=== PATIENT | male | born 1950 | race Caucasian/White ===

== ENCOUNTER 2017-04-02 16:20 | Emergency (ER) | payer OTHER ==
[~2017-04-02] VITALS: Ht 180.3 cm; Wt 99.8 kg
--- NOTE | ~2017-04-02 | EKG ---
[place] [address] [place] [address] ELECTROCARDIOGRAM REPORT Name: KEILA MEYER CRISTINO Room #: [facility] [id number] Admission: 04/02/17 Attend Phys: Discharge: 04/02/17 Date of : 54 Report #: [id number] THIS REPORT FOR: //name// 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 : 1950 Requested By: Ze He Order Number: [id number] MD: Maxx Kiran Measurements Intervals [place] Rate: 72 P: -16 WA: 187 QRS: -42 QRSD: 96 T: 22 QT: 394 QTc: 432 Interpretive Statements Sinus rhythm Atrial premature complexes in couplets Left anterior fascicular block Abnormal R-wave progression, early transition No previous ECG available for comparison Electronically Signed On 04-04-2017 9:12:41 CDT by Maxx Kiran [email or web address] <ELECTRONICALLY SIGNED> By: Maxx Kiran MD, [facility] 04/04/17 0912 1628 162 Maxx Kiran MD, [facility] /EPI
[2017-04-02] MEDS ORDERED: NEXIUM40 MG PO (16:32)
[2017-04-02] MEDS ORDERED: VITAMIN B-12500 MCG PO (16:32)
[2017-04-02] MEDS ORDERED: VITAMIN C100 MG PO (16:33)
[2017-04-02 16:45] LABS: ABSOLUTE NEUTROPHILS 3.9 thou/uL (1.4-8.2); BASOPHILS 0.5 % (0.0-2.0); EOSINOPHILS 4.2 % (0.0-3.0); HEMATOCRIT 41.8 % (42.0-52.0); HEMOGLOBIN 14.7 gm/dL (14.0-18.0); MANUAL DIFF NO; MCH 34.8 pg (26.0-34.0); MCV 99.4 fL (80.0-100.0); MONOCYTES 8.5 % (1.0-8.0); PLATELET COUNT 154 thou/uL (150-400); POLYS 66.8 % (36.0-66.0); RBC 4.21 mil/uL (4.50-6.00); RDW 12.9 % (10.5-14.5); WBC 5.8 thou/uL (4.0-11.0)
[2017-04-02 16:53] LABS: ANION GAP 8 mmol/L (7-16); BUN 18 mg/dL (7-18); CALCIUM 9.2 mg/dL (8.5-10.1); CHLORIDE 106 mmol/L (98-107); CO2 28 mmol/L (21-32); CREATININE 1.3 mg/dL (0.7-1.3); GLUCOSE 97 mg/dL (74-106); POTASSIUM 3.9 mmol/L (3.5-5.1); SODIUM 142 mmol/L (136-145)
[2017-04-02 17:00] LABS: TROPONIN-I < 0.04 ng/mL (<0.04-0.07)
[2017-04-02] MEDS ORDERED: PEPCID20 MG PO (18:12)
[2017-04-02 19:42] VITALS: BP 152/86
== END 2017-04-02 19:43 | disposition still patient (30) ==
LOC: ER 16:20
PROVIDERS: Emergency Medicine
DX: R07.89 Other chest pain (principal); K21.9 Gastro-esophageal reflux disease without esophagitis; F10.99 Alcohol use, unspecified with unspecified alcohol-induced disorder; Z98.890 Other specified postprocedural states; Z88.0 Allergy status to penicillin; Z87.891 Personal history of nicotine dependence

== ENCOUNTER 2021-04-13 13:23 | Emergency (ER) | payer OTHER ==
[~2021-04-13] VITALS: Ht 180.3 cm; Wt 74.8 kg
[~2021-04-13 13:23] MED LIST: NEXIUM40 MG PO; PEPCID20 MG PO; VITAMIN B-12500 MCG PO; VITAMIN C100 MG PO
[2021-04-13] MEDS ORDERED: KAPSPARGO SPRIN25 MG PO (14:20)
[2021-04-13] MEDS ORDERED: LEVOTHYROXINE75 MC1 PO (14:21)
[2021-04-13] MEDS ORDERED: LEVSIN0.125 MG PO (14:22)
--- NOTE | 2021-04-13 14:53 | EKG ---
[place] [address] [facility] [place] [address] ELECTROCARDIOGRAM REPORT Name: KEILA MEYER CRISTINO Room #: REG [facility] COUNTYRasheeda#: [id number] Admission: 04/13/21 Attend Phys: Discharge: Date of : 54 Report #: [id number] [facility] ED Test Date: 2021-04-13 Test Time: 13:30:34 Pat Name: KEILA MEYER Department: Room: Gender: M Mortgage Professional: : 1950 Requested By: Toi Edwards Order Number: [id number] MD: Kraig Woodard Measurements Intervals [place] Rate: 68 P: -28 GA: 196 QRS: -28 QRSD: 86 T: 35 QT: 387 QTc: 412 Interpretive Statements Sinus rhythm Atrial premature complex Borderline left axis deviation Compared to ECG 04/02/2017 16:28:18 Left anterior fascicular block no longer present Electronically Signed On 04-13-2021 14:53:37 CDT by Kraig Woodard [email or web address] <ELECTRONICALLY SIGNED> By: Kraig Woodard MD, [facility] 04/13/21 1453 1330 133 Kraig Woodard MD, [facility] /EPI
[2021-04-13 15:01] LABS: ABSOLUTE NEUTROPHILS 1.9 thou/uL (1.4-8.2); BASOPHILS 0.5 % (0.0-2.0); EOSINOPHILS 2.9 % (0.0-3.0); HEMATOCRIT 38.5 % (42.0-52.0); HEMOGLOBIN 13.3 gm/dL (14.0-18.0); LYMPHOCYTES 22.2 % (24.0-44.0); MCH 34.3 pg (26.0-34.0); MCHC 34.5 g/dL (28.0-37.0); MCV 99.3 fL (80.0-100.0); MONOCYTES 11.6 % (1.0-8.0); PLATELET COUNT 143 thou/uL (150-400); POLYS 62.8 % (36.0-66.0); RBC 3.88 mil/uL (4.50-6.00); RDW 12.6 % (10.5-14.5); WBC 3.1 thou/uL (4.0-11.0)
[2021-04-13 15:08] LABS: ANION GAP 5 mmol/L (7-16); BUN 15 mg/dL (7-18); CHLORIDE 105 mmol/L (98-107); CO2 31 mmol/L (21-32); CREATININE 1.2 mg/dL (0.7-1.3); GLUCOSE 113 mg/dL (74-106); POTASSIUM 3.8 mmol/L (3.5-5.1); SODIUM 141 mmol/L (136-145)
[2021-04-13 15:18] LABS: ALBUMIN 3.7 g/dL (3.4-5.0); SGOT 14 U/L (15-37); SGPT 20 U/L (16-63); TOTAL BILIRUBIN 1.4 mg/dL (0.2-1.0); TOTAL PROTEIN 7.3 g/dL (6.4-8.2); TROPONIN-I <0.06 ng/mL (<0.06)
[2021-04-13 16:31] LABS: URINE BILIRUBIN NEGATIVE (Negative); URINE BLOOD NEGATIVE (Negative); URINE CLARITY CLEAR; URINE COLOR YELLOW; URINE GLUCOSE-RANDOM* NEGATIVE (Negative); URINE KETONES TRACE (Negative); URINE LEUKOCYTES-REFLEX NEGATIVE (Negative); URINE NITRITE-REFLEX NEGATIVE (Negative); URINE PROTEIN (DIPSTICK) NEGATIVE (Negative); URINE SPECIFIC GRAVITY <= 1.005 (1.005-1.035); URINE UROBILINOGEN 0.2 E.U./dl (0.2-1.0)
[2021-04-13 17:57] VITALS: BP 162/89
--- NOTE | 2021-04-15 13:14 | P ---
[facility] [place] [address] [place] [address] PROCEDURE REPORT Name: KEILA MEYER Room #: DEP [facility]#: [id number] Admission: 04/13/21 Attend Phys: Discharge: 04/13/21 Date of : 54 Report #: [id number] THIS REPORT FOR: cc: Esteban Cárdenas Andrea RNP McElhinney, Christian C. MD ~ cc: Dr Daly DATE OF SERVICE: 04/13/2021 PROCEDURE PERFORMED: Upper endoscopy with food impaction removal and balloon dilation. HISTORY OF PRESENT ILLNESS: The patient is a 70-year-old male with a history of achalasia with recurrent dysphagia. He has been unable to keep liquids down for the last several days. We had discussed apparently possible Botox in the past, but he never did schedule this. Plan is for EGD. A CT scan of the chest was performed as the patient was admitted with chest pain which showed a significantly dilated esophagus consistent with achalasia. DESCRIPTION OF PROCEDURE: The risks and benefits of the procedure were explained to the patient, those risks including but not limited to bleeding, perforation and the risk of sedation. He understood these risks and gave informed consent. The patient was intubated to protect his airway. Next, using a standard Olympus upper endoscope, the scope was placed in the patient's mouth and advanced under direct vision into the upper esophagus, at which point a significantly dilated esophagus full of soft food and particulate matter as well as some liquid was noted. I then spent over an hour removing the food by a combination of aspiration as well as Pompa net. Eventually, I was able to clear the esophagus. The esophagus was significantly dilated consistent with achalasia. There was narrowing at the GE junction; however, the scope did pass through this area without difficulty. There was old food residual noted in the stomach. There was a mild gastritis noted. Pylorus was normal and patent. The duodenal bulb, first and second portion were normal. The scope was then brought back up into the patient's distal esophagus and a balloon catheter was inserted through the scope and the GE junction was dilated to a maximum of 18 mm. This was held in place for 1 minute. There was no evidence of mucosal tear after dilation. The scope was then withdrawn and the procedure terminated. The patient tolerated the procedure well. IMPRESSION: 1. Findings consistent with achalasia and food impaction, status post removal and balloon dilation as described above. 2. Gastritis. 3. Otherwise, normal upper endoscopy. [facility] [address] [place] [address] PROCEDURE REPORT Name: MITCHKEILA CRISTINO Room #: DEP ER Davina#: [id number] Admission: 04/13/21 Attend Phys: Discharge: 04/13/21 Date of : 54 Report #: [id number] RECOMMENDATIONS: 1. Observe the patient post-procedure. 2. Would recommend liquid diet until the patient either has Botox injection in the near future endoscopically or Heller myotomy surgery as he is high risk for this food impaction to occur again. Thank you for allowing me to participate in his care. <ELECTRONICALLY SIGNED> By: Shaq Bone MD 04/15/21 1314 [id number] 0154 Shaq Bone MD /nt
[2021-04-16] MEDS ORDERED: VITAMIN B-121000 MC2 SUBLING (12:48)
[2021-04-16] MEDS ORDERED: COLLAGEN PO (12:48)
[2021-04-16] MEDS ORDERED: VITAMIN B-121000 MC2 IM (12:49)
== END 2021-04-13 18:19 | disposition home or self-care (01) ==
LOC: ER 13:23
PROVIDERS: Emergency Medicine
DX: K22.2 Esophageal obstruction (principal); K22.0 Achalasia of cardia; Z20.822 Contact with and (suspected) exposure to COVID-19; Z90.89 Acquired absence of other organs; Z79.899 Other long term (current) drug therapy; Z88.0 Allergy status to penicillin; Z88.8 Allergy status to other drugs, medicaments and biological substances; Z87.891 Personal history of nicotine dependence
CPT/HCPCS: 62110; 62900; 70005

== ENCOUNTER → 2021-04-17 | Outpatient (CLI) | payer OTHER ==
[~2021-04-17] VITALS: Ht 182.9 cm; Wt 81.6 kg
[~2021-04-17] MED LIST changes: +COLLAGEN PO; +KAPSPARGO SPRIN25 MG PO; +LEVOTHYROXINE75 MC1 PO; +LEVSIN0.125 MG PO; +VITAMIN B-121000 MC2 IM; +VITAMIN B-121000 MC2 SUBLING
--- NOTE | ~2021-04-17 | P ---
[facility] [place] [address] [address] PROCEDURE REPORT Name: KEILA MEYER Room #: REG [facility]LESRasheedaRasheeda#: [id number] Admission: 04/17/21 Attend Phys: Shaq Lopez Discharge: Date of : 54 Report #: [id number] THIS REPORT FOR: cc: Esteban Cárdenas Andrea RNP McElhinney, Christian C. MD ~ cc: Ramon Kraft MD DATE OF SERVICE: 04/17/2021 PROCEDURE NOTE PROCEDURE PERFORMED: Upper endoscopy with biopsies and Botox injection. HISTORY OF PRESENT ILLNESS: The patient is a 70-year-old male with a history of achalasia and dysphagia. He underwent an emergent upper endoscopy by myself on 04/13/2021 for food impaction. The patient was evaluated in the emergency room with chest pain at that time. Upper endoscopy showed a large amount of semi-liquid food in a significantly dilated esophagus. I spent approximately an hour and a half, removing all this from his esophagus and I did perform a balloon dilation eventually. We discussed at that time proceeding either with Botox and/or Heller myotomy. The patient now presents today for Botox injection of the lower esophageal sphincter. DESCRIPTION OF PROCEDURE: The risks and benefits of the procedure were explained to the patient, those risks including but not limited to bleeding, perforation and the risk of sedation. He understood these risks and gave me informed consent. Sedation was given initially with propofol. Next, using a standard Olympus upper endoscope, the scope was placed in the patient's mouth and advanced under direct vision into the proximal esophagus, at which point it was again significantly dilated. There was a same appearance of semi-liquid food material, even though the patient has been on liquids only since his last upper endoscopy. At this point, the scope was withdrawn and the patient was intubated to protect his airway. This was done without difficulty. Next, the scope was reintroduced into the patient's esophagus. I then proceeded with removing the semi-liquid food material, this time only taking approximately 5 minutes and the esophagus was cleared. I advanced the scope into the stomach. There was a moderate gastritis with several ulcerations noted in the gastric fundus and upper body. Biopsies were obtained to rule out H. pylori. The pylorus was normal and patent. The duodenal bulb, first and second portion were all normal. The scope was then brought back up into the patient's distal esophagus and I next proceeded with injecting Botox in a 4-quadrant fashion with equal parts. No evidence of bleeding after Botox injection. At this point, the scope was then withdrawn and the procedure terminated. The patient tolerated the procedure well. [address] [address] PROCEDURE REPORT Name: KEILA MEYER Room #: REG [facility] Ghosh#: [id number] Admission: 04/17/21 Attend Phys: Shaq Lopez Discharge: Date of : 54 Report #: [id number] IMPRESSION: 1. Changes again consistent with achalasia, again semi-liquid food material noted in the esophagus. This was aspirated away as described above. 2. Gastritis with gastric ulcers. Biopsies were obtained. 3. Status post Botox injection. RECOMMENDATIONS: 1. Observe the patient status post-Botox injection. 2. Advised the patient to continue liquids for the next several days and then slowly began to advance diet as tolerated. 3. Await biopsy results. 4. We will start daily PPI therapy. Thank you for allowing me to participate in his care. By: 1310 2207 Shaq Bone MD /nt
--- NOTE | 2021-04-20 18:06 | PATH ---
[facility] [address] [place] [address] PATHOLOGY RPT PROCEDURE Name: KEILA MEYER CRISTINO Room #: REG [facility] Jeremy.#: [id number] Admission: 04/17/21 Date of : 54 Discharge: Report #: [id number] Path Case #: [id number] [facility] Accession Number: [id number] . 01 Material submitted: . gastrointestinal site - GASTRITIS R/O H. PYLORI . 01 Clinical history: . EGD/DYSPHAGIA . 02 Diagnosis: Gastric mucosa, gastritis, R/O H. pylori, endoscopic biopsy: - Fragments of gastric mucosa with mild to moderate chronic active gastritis as well as focal ulceration. - Multiple additional fragments with small bowel-type architecture and abundant intestinal metaplasia showing moderate acute and chronic inflammation. - Negative for atrophy or dysplasia. - Negative for Helicobacter pylori (properly controlled immunohistochemical stain performed), see comment. (IUV:chantel; 04/20/2021) S 04/20/2021 1529 Local . 02 Comment: An intensive search for Helicobacter pylori-like organisms is negative. Absence of such organisms does not entirely exclude the possibility and may be due to sampling. Other possible etiologies may include chemical gastritis, autoimmune gastritis, gastritis associated with inflammatory bowel disease. Please correlate with clinical, endoscopic, and microbiological studies if clinically indicated. (IUV:chantel; 04/20/2021) . 02 Electronically signed: . Yancy Rondon MD, Pathologist NPI- [id number] . 01 Gross description: . The specimen is received in formalin, labeled "Keila Meyer, mickie". Received are five segments of pale duarte tissue ranging in size from 0.2-0.7 cm in maximum dimensions. The specimen is submitted entirely in cassette A1. (CAA; 04/18/2021) QA/[facility] 04/18/2021 1743 Local . 02 Pathologist provided ICD-10: K29.50, K29.00 . [address] [place] [address] PATHOLOGY RPT PROCEDURE Name: KEILA MEYER CRISTINO Room #: REG [facility].#: [id number] Admission: 04/17/21 Date of : 54 Discharge: Report #: [id number] Path Case #: [id number] [facility] . [id number], [id number] Specimen Comment: A courtesy copy of this report has been sent to [phone], [phone] Specimen Comment: [id number] Specimen Comment: Report sent to / DR ACOSTA Performed at: [address], [place], [place] [id number] MD John Parr MD Phone: [phone] Performed at: [address] [id number] MD Yancy Rondon MD Phone: [phone]
== END | disposition home or self-care (01) ==
LOC: GI 11:08
PROVIDERS: ATTEND Specialist
DX: R13.10 Dysphagia, unspecified (principal); K29.00 Acute gastritis without bleeding; K29.50 Unspecified chronic gastritis without bleeding; K59.89 Other specified functional intestinal disorders; K21.9 Gastro-esophageal reflux disease without esophagitis; I10 Essential (primary) hypertension; E03.9 Hypothyroidism, unspecified; Z98.890 Other specified postprocedural states; Z79.899 Other long term (current) drug therapy; Z87.891 Personal history of nicotine dependence; Z88.0 Allergy status to penicillin
CPT/HCPCS: 62110; 62900